=== PATIENT | female | born 1985 | race Caucasian/White ===

== ENCOUNTER → 2016-11-20 | Outpatient (CLI) | payer BC ==
[~2016-11-20] MED LIST: ALD250 PO; CALC500C3 PEG; DOXY-300 PO; GLC/500 PO; IBUP-1450 PO; METH250T21 PO; PRENTAB26 PO; RANI150T3 PO
--- NOTE | 2016-11-20 10:53 | DIAGNOSTIC IMAGING REPORT ---
CHEST 2 VIEWS ROUTINE HISTORY: COUGH COMPARISON: None. FINDINGS: No pleural effusions. No pneumothorax. The right lung is clear. Small linear density within the lingula. The heart is normal in size. No pleural effusions or pneumothorax. IMPRESSION: Small linear density within the lingula which favors subsegmental atelectasis or scarring. However, this could represent a small developing pneumonia but is considered less likely. Otherwise, the lungs are clear. Electronically signed by: Bo Lozano M.D. 11/20/2016 10:51 AM Dictated Date/Time: 11/20/2016 10:50 AM
== END | disposition home or self-care (01) ==
LOC: C.RAD1850 10:36
PROVIDERS: ATTEND Family Medicine
DX: R05 Cough (principal)

== ENCOUNTER → 2016-11-27 | Outpatient (CLI) | payer BC ==
--- NOTE | 2016-11-27 12:43 | DIAGNOSTIC IMAGING REPORT ---
CHEST 2 VIEWS ROUTINE CLINICAL HISTORY: Wheezing. Evaluate for pneumonia. COMPARISON STUDY: Chest radiograph November 20, 2016. FINDINGS: Lung volumes are normal. There is no consolidation to suggest pneumonia. Cardiac size is normal. Mediastinal contours are normal. There is no evidence of pulmonary edema. The appearance of the chest is unchanged. IMPRESSION: No acute cardiopulmonary findings. Electronically signed by: Valentin Ramírez M.D. 11/27/2016 12:42 PM Dictated Date/Time: 11/27/2016 12:41 PM
== END | disposition home or self-care (01) ==
LOC: C.RAD1850 12:26
PROVIDERS: ATTEND Family Medicine
DX: R06.2 Wheezing (principal)

== ENCOUNTER → 2016-12-27 | Outpatient (CLI) | payer BC ==
[~2016-12-27] MED LIST changes: -RANI150T3 PO
== END | disposition home or self-care (01) ==
LOC: C.LAB1850 15:51
PROVIDERS: ATTEND Obstetrics & Gynecology
DX: Z32.01 Encounter for pregnancy test, result positive (principal); O09.299 Supervision of pregnancy with other poor reproductive or obstetric history, unspecified trimester; Z3A.00 Weeks of gestation of pregnancy not specified

== ENCOUNTER → 2016-12-30 | Outpatient (CLI) | payer BC | END | disposition home or self-care (01) | LOC: C.LAB1850 09:56 | PROVIDERS: ATTEND Obstetrics & Gynecology | DX: O09.299 Supervision of pregnancy with other poor reproductive or obstetric history, unspecified trimester (principal) ==

== ENCOUNTER → 2017-01-03 | Outpatient (CLI) | payer BC | END | disposition home or self-care (01) | LOC: C.LAB1850 08:15 | PROVIDERS: ATTEND Obstetrics & Gynecology | DX: O09.299 Supervision of pregnancy with other poor reproductive or obstetric history, unspecified trimester (principal) ==

== ENCOUNTER → 2017-01-06 | Outpatient (CLI) | payer BC | END | disposition home or self-care (01) | LOC: C.LAB1850 08:01 | PROVIDERS: ATTEND Obstetrics & Gynecology | DX: O20.0 Threatened abortion (principal); Z3A.00 Weeks of gestation of pregnancy not specified ==

== ENCOUNTER → 2017-01-08 | Outpatient (CLI) | payer BC | END | disposition home or self-care (01) | LOC: C.LAB1850 08:21 | PROVIDERS: ATTEND Obstetrics & Gynecology | DX: O20.0 Threatened abortion (principal); Z3A.00 Weeks of gestation of pregnancy not specified ==

== ENCOUNTER → 2017-01-13 | Outpatient (CLI) | payer BC | END | disposition home or self-care (01) | LOC: C.LAB1850 08:07 | PROVIDERS: ATTEND Obstetrics & Gynecology | DX: O09.299 Supervision of pregnancy with other poor reproductive or obstetric history, unspecified trimester (principal); Z3A.00 Weeks of gestation of pregnancy not specified ==

== ENCOUNTER → 2017-01-16 | Outpatient (CLI) | payer BC | END | disposition home or self-care (01) | LOC: C.LAB1850 07:52 | PROVIDERS: ATTEND Obstetrics & Gynecology | DX: O09.299 Supervision of pregnancy with other poor reproductive or obstetric history, unspecified trimester (principal) ==

== ENCOUNTER → 2017-02-06 | Day surgery (SDC) | payer BC ==
[2017-02-04 12:24] LABS: BASO % 0.3 %; BASO ABS # 0.03 K/uL (0-0.2); COMPLETE YES; EOS % 0.6 %; HEMATOCRIT 37.3 % (37-47); IG% 0.3 %; LYMPH % 13.5 %; LYMPH ABS # 1.56 K/uL (1.2-3.4); MEAN CELL VOLUME 79.5 fL (80-100); MEAN CORPUSCULAR HEMOGLOBIN 25.6 pg (25-34); MEAN CORPUSCULAR HGB CONC 32.2 g/dl (32-36); MEAN PLATELET VOLUME 9.2 fL (7.4-10.4); MONO % 8.5 %; NEUT % 76.8 %; PLATELET COUNT 392 K/uL (130-400); RED BLOOD COUNT 4.69 M/uL (4.2-5.4); WHITE BLOOD COUNT 11.57 K/uL (4.8-10.8)
[2017-02-04 13:32] VITALS: BMI 41.0
[2017-02-04 13:51] LABS: POTASSIUM 3.8 mmol/L (3.5-5.1)
[~2017-02-06] VITALS: Ht 172.7 cm; Wt 121.8 kg
[~2017-02-06] MED LIST changes: -CALC500C3 PEG; +DEXAMETHASONE SOD INJ 4 MG/ML VIAL ONE; +DOXYCYCLINE HYCLATE 100 MG CAP PO SCH; +DOXYCYCLINE HYCLATE 100 MG CAP PO STA; +FENTANYL CITRATE INJ 50 MCG/1 ML 2 ML VIAL ONE; +IBUPROFEN 600 MG TAB PO PRN; +KETOROLAC TROMETHAMINE 30 MG/ML VIAL IV. PRN; +LACTATED RINGER'S 1000ML 1,000 ML IV PRN; +LACTATED RINGER'S 1000ML 1,000 ML IV SCH; +LIDOCAINE HCL 2% 2 ML VIAL (20MG/ML) ONE; +METHYLERGONOVINE MALEATE 0.2 MG TAB PO SCH; +METHYLERGONOVINE MALEATE 0.2 MG/ML AMP IV SCH; +METHYLERGONOVINE MALEATE 0.2 MG/ML AMP ONE; +MIDAZOLAM HCL 1 MG/ML 2ML VIAL ONE; +ONDANSETRON INJ 2 MG/ML 2 ML VIAL IV PRN; +ONDANSETRON INJ 2 MG/ML 2 ML VIAL ONE; +OXYCODONE/ACETAMINOPHEN 5-325 TAB PO PRN; +PROPOFOL IV EMULSION 10 MG/ML 20 ML VIAL IV ONE; +SODIUM CHLORIDE 0.9% 1000ML 1,000 ML IV SCH
[2017-02-06 10:17] VITALS: BP 163/93; PULSE 102; TEMP 37; O2SAT 97; Ht 172.7 cm; Wt 121.8 kg
[2017-02-06 11:08] LABS: CALCIUM 8.5 mg/dl (8.5-10.1); CREATININE 0.62 mg/dl (0.60-1.20); POTASSIUM 3.8 mmol/L (3.5-5.1)
--- NOTE | 2017-02-06 11:16 | History & Physical Bridge Note ---
H&P Re-Evaluation Bridge Note: I have examined the patient, reviewed the History & Physical and in the interval since the performance of the History & Physical I have noted the following changes of clinical significance: No changes noted
--- NOTE | 2017-02-06 11:59 | [facility] Post Operative Brief Note ---
Immediate Operative Summary Operative Date Feb 06, 2017. Pre-Operative Diagnosis Missed Post-Operative Diagnosis Missed Procedure(s) Performed Dilation and Evacuation of Uterine Contents Surgeon Dr. Dulce Tariq Statistical Methods Professor Surgeon(s) None Estimated Blood Loss 20ml Findings uterus sounds to 9cm preprocedure, small and mobile postprocedure. large pocs. Fluids (cc crystalloids) 400 Specimens A. Products of Conception Drains none Anesthesia general Complication(s) None Disposition Recovery Room / PACU
--- NOTE | 2017-02-06 12:05 | Discharge Instructions ---
Discharge Instructions Date of Service Feb 06, 2017. Admission Reason for Admission: Missed Discharge Discharge Diagnosis / Problem: after surgery Discharge Goals Goal(s): Routine recovery after surgery Activity Recommendations Activity Limitations: as noted below . Instructions / Follow-Up Instructions / Follow-Up ACTIVITY RECOMMENDATIONS: * Avoid tampons, douching, hot tubs, pools, and intercourse until bleeding has stopped. * May shower as usual. * No strenuous activity for 24-48 hours. After 24-48 hours, you may do anything you feel like doing (driving and sports are okay). SPECIAL CARE INSTRUCTIONS: Special Diet: * Mild nausea may occur in the immediate post-operative period. * Take clear liquids such as tea, cola or bouillon until all nausea has subsided; you may then resume your normal diet. Special Care: * Light bleeding and vaginal spotting can last from a few days to 3-4 weeks. Call your doctor if bleeding becomes heavier than the heaviest part of your period. * Check your temperature twice a day for one week. If it goes above 100.4 degrees Fahrenheit (38.0 Celsius), notify your doctor. * Call your doctor's office if need to change your postop appointment. * Take the antibiotic that was sent to your pharmacy as directed on bottle TAKE METHERGINE TABS BY MOUTH EVERY 6HRS until DONE, first dose around 6pm tonight. can use motrin and tylenol as needed for pain You requested weekly labs of your hormone, there is an order placed to have drawn next . FOLLOW-UP VISIT: FEBRUARY 19 at 815am. Current Hospital Diet Patient's current hospital diet: Discharge Diet Recommended Diet: Regular Diet Procedures Procedures Performed: Dilation and Evacuation of Uterine Contents Pending Studies Studies pending at discharge: yes List of pending studies: pathology Medical Emergencies . Who to Call and When: Medical Emergencies: If at any time you feel your situation is an emergency, please call 911 immediately. . Non-Emergent Contact Non-Emergency issues call your: Clay Maker . . "Provider Documentation" section prepared by Dulce Tariq. . VTE Core Measure Inpt VTE Proph given/why not?: Treatment not indicated
[2017-02-06] MEDS: FENTANYL CITRATE INJ 50 MCG/1 ML 2 ML VIAL IV PRN ×4 (12:08→12:23)
[2017-02-06 12:50] VITALS: BP 139/96; PULSE 91; TEMP 37; O2SAT 95
[2017-02-06 13:20] VITALS: BP 153/90; PULSE 91; O2SAT 97
--- NOTE | 2017-02-06 13:22 | Anesthesiology Progress Note ---
Anesthesia Post Op Note Date & Time Feb 06, 2017 at 13:22 Vital Signs Pain Intensity: 2 Vital Signs Past 12 Hours Date Time Temp Pulse Resp B/P (MAP) Pulse Ox O2 Delivery O2 Flow Rate FiO2 02/06/17 12:50 37 91 18 139/96 95 Room Air 02/06/17 12:39 151/103 02/06/17 12:37 175/107 02/06/17 12:34 92 14 95 02/06/17 12:34 36.9 90 16 151/103 (113) 96 Room Air 02/06/17 12:34 92 14 02/06/17 12:32 172/102 02/06/17 12:29 88 14 92 02/06/17 12:29 91 16 93 02/06/17 12:27 162/97 02/06/17 12:23 173/103 02/06/17 12:17 87 13 02/06/17 12:17 86 13 151/100 100 02/06/17 12:16 159/107 02/06/17 12:12 88 15 100 02/06/17 12:12 94 13 162/102 100 02/06/17 12:07 153/100 02/06/17 12:04 156/97 02/06/17 12:02 36.2 96 20 156/97 100 Nasal Cannula 10 02/06/17 10:17 37 102 20 163/93 (116) 97 Room Air Notes Mental Status: alert / awake / arousable, participated in evaluation Pt Amnestic to Procedure: Yes Nausea / Vomiting: adequately controlled Pain: adequately controlled Airway Patency, RR, SpO2: stable & adequate BP & HR: stable & adequate Hydration State: stable & adequate Anesthetic Complications: no major complications apparent Pt did well.
--- NOTE | 2017-02-06 13:32 | OPERATIVE REPORT ---
DATE OF OPERATION: 02/06/2017 PREOPERATIVE DIAGNOSES: Missed . POSTOPERATIVE DIAGNOSIS: Same. PROCEDURE: Dilatation, evacuation and curettage. SURGEON: Dr. Dulce Tariq. MARINE SURVEYOR: None. ANESTHESIA: General. IV FLUIDS: 400 mL ESTIMATED BLOOD LOSS: 20 mL. INDICATIONS: A 31-year-old with history of a 6-week missed who desires surgical management. The patient is aware of all of her treatment options and desires to proceed. FINDINGS: Uterus sounds to 9 cm preprocedure and a small and mobile post procedure. Large amount of products of conception. DESCRIPTION OF PROCEDURE: The patient was taken to the operating room and identified. After adequate general anesthesia was obtained, she was placed in dorsal lithotomy position and prepped and draped in the usual sterile fashion. A weighted speculum and anterior retractor were used to visualize the cervix which was grasped at its anterior lip with an Allis clamp. This was after the bladder was drained for clear yellow urine. The cervix was sequentially dilated using Hegar dilators to 23. An 8 mm suction curette was gently placed through the cervical os into the uterine cavity and the uterus was cleared of its contents in multiple passes. A curettage was performed to a gritty consistency and an additional pass with the suction curette took place to clear the uterus of any remaining tissue and blood. 0.2 mg of IM Methergine was administered by anesthesia per my order. The patient was returned to the supine position. She was awoken from anesthesia and transferred to the recovery room in stable condition. All sponge, lap and needle counts were correct x2. I attest to the content of the Intraoperative Record and any orders documented therein. Any exceptions are noted below. BRISEIDAD
[2017-02-06 13:59] VITALS: BP 154/97; PULSE 90; TEMP 36.7; O2SAT 98
[2017-02-06] MEDS: METHYLERGONOVINE MALEATE 0.2 MG TAB PO SCH (14:00)
== END | disposition home or self-care (01) ==
LOC: C.ACU 09:56
PROVIDERS: ATTEND Obstetrics & Gynecology
DX: O02.1 Missed abortion (principal); I10 Essential (primary) hypertension; Z88.1 Allergy status to other antibiotic agents; Z90.49 Acquired absence of other specified parts of digestive tract; Z90.89 Acquired absence of other organs; E66.01 Morbid (severe) obesity due to excess calories; Z68.41 Body mass index [BMI] 40.0-44.9, adult; Z88.2 Allergy status to sulfonamides; Z88.0 Allergy status to penicillin; Z83.3 Family history of diabetes mellitus

== ENCOUNTER 2017-02-08 22:13 | Emergency (ER) | payer BC ==
[~2017-02-08] VITALS: Ht 170.2 cm; Wt 126.5 kg
[~2017-02-08 22:13] MED LIST changes: -DEXAMETHASONE SOD INJ 4 MG/ML VIAL ONE; -DOXY-300 PO; -DOXYCYCLINE HYCLATE 100 MG CAP PO SCH; -DOXYCYCLINE HYCLATE 100 MG CAP PO STA; -FENTANYL CITRATE INJ 50 MCG/1 ML 2 ML VIAL ONE; -IBUP-1450 PO; -IBUPROFEN 600 MG TAB PO PRN; -KETOROLAC TROMETHAMINE 30 MG/ML VIAL IV. PRN; -LACTATED RINGER'S 1000ML 1,000 ML IV PRN; -LACTATED RINGER'S 1000ML 1,000 ML IV SCH; -LIDOCAINE HCL 2% 2 ML VIAL (20MG/ML) ONE; -METHYLERGONOVINE MALEATE 0.2 MG TAB PO SCH; -METHYLERGONOVINE MALEATE 0.2 MG/ML AMP IV SCH; -METHYLERGONOVINE MALEATE 0.2 MG/ML AMP ONE; -MIDAZOLAM HCL 1 MG/ML 2ML VIAL ONE; -ONDANSETRON INJ 2 MG/ML 2 ML VIAL IV PRN; -ONDANSETRON INJ 2 MG/ML 2 ML VIAL ONE; -OXYCODONE/ACETAMINOPHEN 5-325 TAB PO PRN; -PROPOFOL IV EMULSION 10 MG/ML 20 ML VIAL IV ONE; -SODIUM CHLORIDE 0.9% 1000ML 1,000 ML IV SCH
[2017-02-08 22:15] VITALS: TEMP 36.6; Ht 170.2 cm; Wt 126.5 kg
[2017-02-08] MEDS ORDERED: SODIUM CHLORIDE 0.9% 1000ML 1,000 ML IV STA (22:37)
[2017-02-08] MEDS ORDERED: MoRPHine SULFATE 10 MG/ML CARP/VIAL IV STA (22:44)
[2017-02-08 23:00] LABS: BASO % 0.2 %; BASO ABS # 0.03 K/uL (0-0.2); COMPLETE YES; EOS % 1.5 %; HEMATOCRIT 34.9 % (37-47); IG% 0.2 %; LYMPH % 12.4 %; LYMPH ABS # 1.62 K/uL (1.2-3.4); MEAN CELL VOLUME 81.2 fL (80-100); MEAN CORPUSCULAR HEMOGLOBIN 25.6 pg (25-34); MEAN CORPUSCULAR HGB CONC 31.5 g/dl (32-36); MEAN PLATELET VOLUME 8.8 fL (7.4-10.4); NEUT % 75.7 %; PLATELET COUNT 321 K/uL (130-400); WHITE BLOOD COUNT 13.08 K/uL (4.8-10.8)
[2017-02-08 23:17] LABS: BUN/CREATININE RATIO 14.4 (10-20); CALCIUM 8.3 mg/dl (8.5-10.1); CREATININE 0.79 mg/dl (0.60-1.20); POTASSIUM 3.9 mmol/L (3.5-5.1)
[2017-02-09 00:57] LABS: URINE APPEARANCE CLEAR (CLEAR); URINE BILIRUBIN NEG (NEG); URINE COLOR YELLOW; URINE EPITHELIAL CELL AUTO >30 /lpf (0-5); URINE NITRITE NEG (NEG); URINE SPECIFIC GRAVITY 1.015 (1.000-1.030); UROBILINOGEN NEG (NEG); ZZUR CULT IF INDIC CLEAN CATCH YES
[2017-02-09] MEDS ORDERED: KETOROLAC TROMETHAMINE 30 MG/ML VIAL IV STA (00:58)
[2017-02-09 01:01] LABS: MANUAL MICROSCOPIC REQUIRED? NO; REVIEW REQ? NO
[2017-02-09] MEDS ORDERED: IBUP-1450 PO (01:10)
[2017-02-09 01:36] VITALS: BP 134/68; PULSE 78; O2SAT 99
[2017-02-09] MEDS ORDERED: DOXYCYCLINE HYCLATE 100 MG CAP PO ONE (01:45)
[2017-02-09] MEDS ORDERED: DOXY-300 PO (01:50)
--- NOTE | 2017-02-09 02:15 | EMERGENCY ROOM VISIT NOTE ---
History Report prepared by Leonardoibshikha: Osman Neville Under the Supervision of: Dr. Edy Paul D.O. First contact with patient: 22:21 Chief Complaint: ABDOMINAL PAIN Stated Complaint: LOWER ABD PAIN,D&E FOR MISCARRIAGE ON 02-06 History of Present Illness The patient is a 31 year old female who presents to the Emergency Room with complaints of worsening lower abdominal pain starting last night. She reports the pain as a 10/10 in severity. The patient states that she had a D&E with Dr. Tariq three days ago due to a miscarriage. She reports that she was fine after the appointment, but had an allergic reaction the next day to the antibiotics she was taking. The patient admits that she has stopped taking the antibiotic due to her reaction. She states that she started to have lower abdominal pain radiating to her groin starting last night that has worsened since tonight. The patient states that her stomach has been distended. She admits to going to the bathroom 3 to 4 times today with normal stool. The patient also admits to scant vaginal bleeding. No other vaginal discharge. She does note that she has had something similar before in the past on 2 separate occasions and it ended up being a UTI. Her last bowel movement prior to today was early /late Friday. She notes that she has been constipated since the procedure. She reports that she is taking iron pills. The patient denies headache, change in vision, fevers, chest pain, shortness of breath, nausea, vomiting, diarrhea, pain with urination, and melena. Source of History: patient Onset: last night Position: abdomen (lower) Symptom Intensity: 10/10 Timing: worsening Associated Symptoms: No fevers, No headache, No chest pain, No SOB, No vomiting, No diarrhea Review of Systems See HPI for pertinent positives & negatives. A total of 10 systems reviewed and were otherwise negative. Past Medical & Surgical Medical Problems: (1) Pre-eclampsia, Social History Smoking Status: Never Smoker Alcohol Use: none Drug Use: none Marital Status: Housing Status: lives with friends Occupation Status: employed Current/Historical Medications Scheduled Doxycycline (Monohydrate) (Doxycycline), 100 MG PO BID Methyldopa (Aldomet), 500 MG PO AMPM Methyldopa (Methyldopa), 250 MG PO NOON Multivit/Min/Iron/Fol Ac/Pren ( Vitamin), 1 TAB PO HS Scheduled PRN Ibuprofen (Motrin), 200-600 MG PO DIRECTED PRN for Pain or Fever Allergies Coded Allergies: Nitrofurantoin (Verified Allergy, Intermediate, HIVES, 02/09/17) Erythromycin (Verified Allergy, Unknown, ?, 02/09/17) Penicillins (Verified Allergy, Unknown, PT. IS ABLE TO TAKE CEFTIN, ) Sulfa Drugs (Verified Allergy, Unknown, ?, 02/09/17) Sulfamethoxazole (Verified Allergy, Unknown, HIVES, 02/09/17) Trimethoprim (Verified Allergy, Unknown, HIVES/DIARRHEA, 02/09/17) Physical Exam Vital Signs Date Time Temp Pulse Resp B/P (MAP) Pulse Ox O2 Delivery O2 Flow Rate FiO2 02/09/17 01:36 78 20 134/68 99 Room Air 02/08/17 23:45 78 18 137/94 99 Room Air 02/08/17 22:15 36.6 110 16 125/86 97 Room Air Physical Exam GENERAL: Sitting up in bed, disheveled, alert, well appearing, well nourished, no distress, non-toxic EYE EXAM: normal conjunctiva, PERRL and EOM's grossly intact OROPHARYNX: no exudate, no erythema, lips, buccal mucosa, and tongue normal and mucous membranes are moist NECK: supple, no nuchal rigidity, no adenopathy, non-tender LUNGS: Clear to auscultation. Normal chest wall mechanics HEART: no murmurs, S1 normal and S2 normal ABDOMEN: abdomen soft, tenderness to suprapubic region, normo-active bowel sounds, no masses, no rebound or guarding. BACK: Back is symmetrical on inspection and there is no deformity, no midline tenderness, no CVA tenderness. SKIN: no rashes and no bruising UPPER EXTREMITIES: upper extremities are grossly normal. LOWER EXTREMITIES: No pitting edema. NEURO EXAM: Normal sensorium, cranial nerves II-XII grossly intact, normal speech, no gross weakness of arms, no gross weakness of legs. Gross sensation intact. Medical Decision & Procedures ER Provider Diagnostic Interpretation: Radiology results as stated below per my review and interpretation: Portable AP Upright Chest. No focal infiltrate. No pneumothorax 5 views Abdomen: Large amount of gas with large fecal load. No obstruction. Clips located in right upper quadrant. US PELVIS: Limited transabdominal study. Slightly heterogenous endometrium measuring approximately 1 cm. No definite vascularity noted. Ovaries not visualize. Possible trace pelvic free fluid. Debris in the Bladder. Radiologist: Shonna Arboleda M.D Study ready at 00:44 and initial results transmitted at 0047. Laboratory Results 02/08/17 22:50 Red Blood Count 4.30, Mean Corpuscular Volume 81.2, Mean Corpuscular Hemoglobin 25.6, Mean Corpuscular Hemoglobin Concent 31.5, Mean Platelet Volume 8.8, Neutrophils (%) (Auto) 75.7, Lymphocytes (%) (Auto) 12.4, Monocytes (%) (Auto) 10.0, Eosinophils (%) (Auto) 1.5, Basophils (%) (Auto) 0.2, Neutrophils # (Auto ) 9.90, Lymphocytes # (Auto) 1.62, Monocytes # (Auto) 1.31, Eosinophils # (Auto ) 0.19, Basophils # (Auto) 0.03 02/08/17 22:50 Test 02/08/17 22:50 02/09/17 00:40 White Blood Count 13.08 K/uL (4.8-10.8) Red Blood Count 4.30 M/uL (4.2-5.4) Hemoglobin 11.0 g/dL (12.0-16.0) Hematocrit 34.9 % (37-47) Mean Corpuscular Volume 81.2 fL (80-100) Mean Corpuscular Hemoglobin 25.6 pg (25-34) Mean Corpuscular Hemoglobin Concent 31.5 g/dl (32-36) Platelet Count 321 K/uL (130-400) Mean Platelet Volume 8.8 fL (7.4-10.4) Neutrophils (%) (Auto) 75.7 % Lymphocytes (%) (Auto) 12.4 % Monocytes (%) (Auto) 10.0 % Eosinophils (%) (Auto) 1.5 % Basophils (%) (Auto) 0.2 % Neutrophils # (Auto) 9.90 K/uL (1.4-6.5) Lymphocytes # (Auto) 1.62 K/uL (1.2-3.4) Monocytes # (Auto) 1.31 K/uL (0.11-0.59) Eosinophils # (Auto) 0.19 K/uL (0-0.5) Basophils # (Auto) 0.03 K/uL (0-0.2) RDW Standard Deviation 52.0 fL (36.4-46.3) RDW Coefficient of Variation 17.4 % (11.5-14.5) Immature Granulocyte % (Auto) 0.2 % Immature Granulocyte # (Auto) 0.03 K/uL (0.00-0.02) Anion Gap 10.0 mmol/L (3-11) Est Creatinine Clear Calc Drug Dose 141.3 ml/min Estimated GFR () 114.8 Estimated GFR (Non- 99.1 BUN/Creatinine Ratio 14.4 (10-20) Calcium Level 8.3 mg/dl (8.5-10.1) Total Bilirubin 0.6 mg/dl (0.2-1) Direct Bilirubin 0.1 mg/dl (0-0.2) Aspartate Amino Transf (AST/SGOT) 8 U/L (15-37) Alanine Aminotransferase (ALT/SGPT) 18 U/L (12-78) Alkaline Phosphatase 60 U/L (45-117) Total Protein 6.7 gm/dl (6.4-8.2) Albumin 3.3 gm/dl (3.4-5.0) Lipase 99 U/L (73-393) Human Chorionic Gonadotropin, Quant 1249 mIU/mL Urine Color YELLOW Urine Appearance CLEAR (CLEAR) Urine pH 5.0 (4.5-7.5) Urine Specific [place] 1.015 (1.000-1.030) Urine Protein NEG (NEG) Urine Glucose (UA) NEG (NEG) Urine Ketones NEG (NEG) Urine Occult Blood 3+ (NEG) Urine Nitrite NEG (NEG) Urine Bilirubin NEG (NEG) Urine Urobilinogen NEG (NEG) Urine Leukocyte Esterase LARGE (NEG) Urine WBC (Auto) >30 /hpf (0-5) Urine RBC (Auto) >30 /hpf (0-4) Urine Hyaline Casts (Auto) 1-5 /lpf (0-5) Urine Epithelial Cells (Auto) >30 /lpf (0-5) Urine Bacteria (Auto) NEG (NEG) Urine Test POS (NEG) Laboratory results per my review. Medications Administered Medications (Trade) Dose Ordered Sig/[place] Route Start Time Stop Time Status Last Admin Dose Admin Sodium Chloride 1,000 ml @ 999 mls/hr Q1H1M STAT IV 02/08/17 22:37 02/08/17 23:37 DC 02/08/17 22:55 999 MLS/HR Ketorolac Tromethamine (Toradol Inj) 30 mg NOW STAT IV 02/09/17 00:58 02/09/17 00:59 DC 02/09/17 01:12 30 MG Doxycycline Hyclate (Vibramycin Cap) 100 mg ONE ONCE PO 02/09/17 01:45 02/09/17 01:46 DC 02/09/17 01:45 100 MG ED Course ED COURSE: Vital signs were reviewed and showed hypertensive. The patients medical record was reviewed The above diagnostic studies were performed and reviewed. ED treatments and interventions as stated above. 2225: The patient was evaluated in room B09. A complete history and physical examination was performed. 2237: Sodium Chloride 1000 ml @ 999 mls/hr IV. 0058: Toradol 30 mg IV. 0134: I discussed the patient's case with Dr. Palomino, JOB RECRUITER, and he recommended Doxycycline and to cover her for endometritis. He does not recommend a pelvic exam. 0145: Vibramycin Cap 100 mg PO. 0150: Upon reevaluation, the patient is feeling better. I discussed the findings and the treatment plan with the patient. She verbalizes agreement and understanding. She was discharged home. Medical Decision Differential diagnoses includes but is not limited to gastritis, peptic ulcer disease, GERD, gallbladder disease, pancreatitis, small bowel obstruction, acute coronary syndrome, pericarditis, ischemic bowel, irritable bowel disease, irritable bowel syndrome, appendicitis, diverticulitis, malignancy, hernia, urinary tract infection, torsion, [/ectopic (if female)], perforation, trauma, infectious. Patient is a 31-year-old female who presents the ER for lower abdominal pain which started earlier today. She does note that she has not had a bowel movement since last Friday/early prior to her D&E. She admits to skin vaginal bleeding. No fevers. She does not that this pain feels similar to previous UTIs but not exactly same. Labs show a leukocytosis of 13,000. Hemoglobin is 11. BMP was unremarkable along with LFTs, bilirubin and lipase. HCG was 1200. UA was contaminated with multiple epithelial cells but did have greater than 30 whites and a large amount leukocytes. Obstruction series shows large stool burden with a large amount of gas. No perforation. Pelvic cultures and shows a thickening of the endometrium. Discussed findings with OB and they recommended treating with doxycycline for possible endometritis. They recommended no pelvic as ultrasound had already been performed. Patient was given a dose of doxycycline. She is discharged to follow-up as an outpatient. I do believe that the symptoms are likely related to either her constipation versus endometritis versus UTI. Doxycycline will cover the endometritis versus UTI since the urine was contaminated. She has gone the bathroom multiple times today following taking multiple stool softeners. I did recommend over-the- counter stool softeners tomorrow to see if she has resolution of her symptoms. I called a prescription for doxycycline to [facility] in [facility]. Discussed with Pt concerning signs and symptoms to watch out for. Pt was instructed to follow up with their PCP and discussed with the patient their option to return to the ED at anytime for persistent or worsening symptoms. The appropriate anticipatory guidance and out-patient management, including indications for return to the emergency department, were explained at length to the patient and understood. Consults Time Called: 013 Consulting Physician: Dr Palomino, JOB RECRUITER Returned Call: 0134 I discussed the patient's case with Dr. Palomino, JOB RECRUITER, and he recommended Doxycycline and to cover her for endometritis. He does not recommend a pelvic exam. Impression Primary Impression: Abdominal pain Additional Impressions: Endometritis Constipation Scribe Attestation The scribe's documentation has been prepared under my direction and personally reviewed by me in its entirety. I confirm that the note above accurately reflects all work, treatment, procedures, and medical decision making performed by me. Departure Information Dispostion Home / Self-Care Prescriptions Doxycycline (Monohydrate) (Doxycycline) 100 Mg Cap 100 MG PO BID, #20 Prov: Edy Paul, 02/09/17 Referrals Nisreen Gaitan D.O. (PCP) Forms Call Back Authorization, HOME CARE DOCUMENTATION FORM, IMPORTANT VISIT INFORMATION Patient Instructions Abdominal Pain - [facility], ED Endometritis Non Obstetric, My [facility] Additional Instructions Please follow up with your primary care doctor with in the next 24 hours. Any worsening of your symptoms, please return to the ED immediately. This includes fevers greater than 100.4, new vaginal discharge, worsening abdominal pain, or any other concerning signs or symptoms from your stand point. Please take antibiotics as prescribed. Problem Qualifiers Primary Impression: Abdominal pain Abdominal location: unspecified location Qualified Codes: R10.9 - Unspecified abdominal pain Additional Impressions: Constipation Constipation type: unspecified constipation type Qualified Codes: K59.00 - Constipation, unspecified
--- NOTE | 2017-02-09 06:43 | DIAGNOSTIC IMAGING REPORT ---
EXAMINATION: PELVIC ULTRASOUND CLINICAL HISTORY: Pelvic pain. History of D&C. COMPARISON STUDY: ultrasound dated 06-16 FINDINGS: The uterus measured 11.5 x 6.4 x 7.6 cm.. The endometrial stripe measured 1 cm.. The endometrium is subtly heterogeneous. There is no increased vascularity identified The ovaries were nonvisualized. There is minimal dependent debris within the bladder. Trace free fluid The patient was on the sagittal restrictions due to recent procedure. The examination was therefore performed a transabdominal fashion only. The study was limited from a technical standpoint due to the patient's large body habitus (BMI 43.7) IMPRESSION: 1. Technically limited study. Subtly heterogeneous endometrium measuring 1 cm. 2. Nonvisualization of the ovaries Electronically signed by: Elias Archibald M.D. 02/09/2017 6:41 AM Dictated Date/Time: 02/09/2017 6:38 AM
--- NOTE | 2017-02-09 06:52 | DIAGNOSTIC IMAGING REPORT ---
ABDOMEN 2VIEW W/PA CHEST RTN CLINICAL HISTORY: abd pain COMPARISON STUDY: Chest x-ray dated 11/27/2016 FINDINGS: The erect chest reveals no free intraperitoneal air. There is no lobar consolidation. There is no failure.] Supine views the abdomen reveal mild fecal retention. There are no transition zone to indicate a high-grade bowel obstruction. There are borderline dilated distal ileal bowel loops. There are surgical clips within the right upper quadrant consistent with a prior cholecystectomy. IMPRESSION: 1. Borderline dilated right abdominal small bowel loops, but no transition zones to indicate a bowel obstruction 2. No evidence of free air 3. Mild fecal retention Electronically signed by: Elias Archibald M.D. 02/09/2017 6:51 AM Dictated Date/Time: 02/09/2017 6:49 AM
== END 2017-02-09 02:13 | disposition home or self-care (01) ==
LOC: C.EDB 22:13
DX: R10.30 Lower abdominal pain, unspecified (principal); N71.9 Inflammatory disease of uterus, unspecified; K59.00 Constipation, unspecified; Z88.2 Allergy status to sulfonamides; Z88.0 Allergy status to penicillin; Z88.8 Allergy status to other drugs, medicaments and biological substances

== ENCOUNTER → 2017-02-20 | Outpatient (CLI) | payer BC ==
[~2017-02-20] MED LIST changes: +DOXY-300 PO; -GLC/500 PO; +IBUP-1450 PO
== END | disposition home or self-care (01) ==
LOC: C.PAPS 12:43
PROVIDERS: ATTEND Obstetrics & Gynecology
DX: Z01.411 Encounter for gynecological examination (general) (routine) with abnormal findings (principal); R87.610 Atypical squamous cells of undetermined significance on cytologic smear of cervix (ASC-US)

== ENCOUNTER 2019-08-20 11:11 | Observation (INO) ==
--- NOTE | 2019-07-27 15:14 | PAT Medication Instructions ---
Medication Instructions Date of Service July 27, 2019 Home Medications lisinopril 30 mg tablet 15 mg PO QPM citalopram [Celexa] 20 mg PO QPM ibuprofen 600 mg PO Q6H PRN ASK your surgeon for instructions ibuprofen 600 mg PO Q6H PRN Take evening before surgery lisinopril 30 mg tablet 15 mg PO QPM citalopram [Celexa] 20 mg PO QPM Other Notes If you have any questions please call us at [phone] or [phone] or [phone] or [phone]
--- NOTE | 2019-07-28 13:01 | Anesthesiology Consultation ---
Date of Service July 28, 2019 Assessment & Plan (1) Encounter for pre-operative examination: - Check test AM DOS Chart Review Chart Review: Acceptable Risk for Surgery (pending surgeon ordered UA (taking to outpatient lab)) and Patient seen in Pre Admission Testing Teaching & Discussion Pre-Anesthesia Teaching/Discussion Notes: Instructed NPO after midnight before s urgery,except medications with 15 cc of water. Medication instructions provided according to the PAT guidelines. History Surgery Operation Date: 08/20/19 12:10 Proposed Procedures p Robotic Total Laparoscopic Hysterectomy - Aicha Felder, Height/Weight Height: 5 ft 8 in Weight: 132.9 kg Allergies Allergy/AdvReac Type Severity Reaction Status Date / Time nitrofurantoin Allergy Intermediate hives Verified 07/28/19 12:02 erythromycin base Allergy Unknown Unknown Verified 07/28/19 12:02 reaction Penicillins Allergy Unknown ?hives, Verified 07/28/19 13:06 diarrhea (see comments) Sulfa (Sulfonamide Allergy Unknown hives, Verified 07/28/19 12:02 Antibiotics) diarrhea sulfamethoxazole Allergy Unknown hives, Verified 07/28/19 12:02 diarrhea trimethoprim Allergy Unknown hives, Verified 07/28/19 12:02 diarrhea Medications Home Medications Medication Instructions Recorded Confirmed Last Taken lisinopril 30 mg tablet 15 mg PO QPM tab 06/01/19 07/21/19 Unknown citalopram [Celexa] 20 mg PO QPM 07/21/19 07/28/19 Unknown ibuprofen 600 mg PO Q6H PRN 07/21/19 07/28/19 Unknown Past Medical History Medical History Anxiety Hx of ovarian cyst Hypertension Morbid obesity Scoliosis "mild"/no treatment "needed" Exercise / Class Metabolic Activity III < 4 Walking/Shop/Light housework Past Family History Family History Father Hypertension Grandmother (Paternal) Family history of diabetes mellitus Family/Other Family history of diabetes mellitus Mother Family history of diabetes mellitus Past Surgical History Surgical History H/O oral surgery History of colonoscopy History of esophagogastroduodenoscopy (EGD) History of gynecologic surgery surgical treatment for miscarriage S/P cholecystectomy S/P dilation and curettage S/P tonsillectomy Past Anesthesia History No Hx of Anesthesia Complications and No Family Hx of Anesthesia Complications History of PONV No Hx of PONV and Hx of Motion Sickness Social History Smoking Status: Never smoker Do You Dip or Chew Tobacco: No Hx Alcohol Use: Yes Alcohol type: wine and hard liquor alcohol intake frequency: holidays/special occasions only Hx Substance Use: No Review of Systems Patient denies chest pain, shortness of breath, cough, wheezing, palpitations. Physical Exam Vital Signs VITALS BP 104/72 P 94 TEMP 98.5 SP02 94%RA RESP 18 PHYSICAL Full neck and c-spine range of motion. Full TMJ range of motion. TMD 4 finger breaths Mallampati Score 3 Dentition: intact Lungs: clear throughout to auscultation Cardiac: regular rate and rhythm, no murmurs noted Spine: normal Extremities: no edema Testing Laboratory Results 07/28/19 13:18 07/28/19 13:18 Blood Type A Positive 07/28/19 13:18 Antibody Screen NEGATIVE 07/28/19 13:18 *hgb 10.4 in setting of menorrhagia (reason for upcoming surgery)* Electrocardiogram Date: 07/28/19 Findings: + NSR @ (73)
[2019-07-28 14:23] LABS: Basophils # (auto) 0.03 K/uL (0-0.2); Basophils % (auto) 0.3 %; Eosinophils # (auto) 0.07 K/uL (0-0.5); Eosinophils % (auto) 0.8 %; Hematocrit (blood only) 34.3 % (37-47); Hemoglobin 10.4 g/dL (12.0-16.0); Immature Granulocytes # (auto) 0.02 K/uL (0.00-0.02); Immature Granulocytes % (auto) 0.2 %; Lymphocytes # (auto) 1.88 K/uL (1.2-3.4); Mean Corpuscular Hemoglobin 23.2 pg (25-34); Mean Corpuscular Hgb Conc 30.3 g/dL (32-36); Mean Corpuscular Volume 76.6 fL (80-100); Mean Platelet Volume 8.9 fL (7.4-10.4); Monocytes # (auto) 0.75 K/uL (0.11-0.59); Monocytes % (auto) 8.4 %; Neutrophils % (auto) 69.3 %; Platelet Count 464 K/uL (130-400); RDW Coefficient of Variation 16.3 % (11.5-14.5); RDW Standard Deviation 45.4 fL (36.4-46.3); Red Blood Count 4.48 M/uL (4.2-5.4); White Blood Count 8.95 K/uL (4.8-10.8)
[2019-07-28 14:44] LABS: BUN Creatinine Ratio 17.5 (10-20); Calcium 9.7 mg/dl (8.5-10.1); Creatinine Clr Calc Pharmacy 156.9 ml/min; Est GFR (African American) 124.5; Est GFR (Non-African American) 107.5; Potassium 3.7 mmol/L (3.5-5.1)
[~2019-08-20 11:11] MED LIST changes: +ACETAMINOPHEN 1000 MG/100 ML IV IV ONE; -ALD250 PO; +CEFAZOLIN 3000MG 65 ML IV SCH; -DOXY-300 PO; -IBUP-1450 PO; +LR 15ML/HR IV SCH; -METH250T21 PO; -PRENTAB26 PO
[2019-08-20] MEDS ORDERED: ONDANSETRON INJ 2 MG/ML 2 ML VIAL ONE (11:32)
[2019-08-20] MEDS ORDERED: ROCURONIUM BROMIDE 10 MG/ML 5 ML VIAL ONE ×3 (11:32→14:40)
[2019-08-20] MEDS ORDERED: DEXAMETHASONE SOD INJ 4 MG/ML VIAL ONE (11:32)
[2019-08-20] MEDS ORDERED: fentaNYL citrate 100 MCG/2 ML VIAL ONE ×3 (11:32→16:18)
[2019-08-20] MEDS ORDERED: MIDAZOLAM HCL 1 MG/ML 2ML VIAL ONE (11:32)
[2019-08-20] MEDS ORDERED: LIDOCAINE HCL 2% 2 ML VIAL/AMP(20MG/ML) INFIL ONE (11:33)
[2019-08-20] MEDS ORDERED: PROPOFOL IV EMULSION 10 MG/ML 20 ML VIAL IV ONE (11:33)
--- NOTE | 2019-08-20 11:40 | History & Physical Bridge Note ---
Date of Service August 20, 2019 History & Physical Bridge Note I have examined the patient, reviewed the History & Physical and in the interval since the performance of the History & Physical I have noted the following changes of clinical significance: no changes noted
[2019-08-20] MEDS ORDERED: SCOPOLAMINE 1.5 MG TDSY ONE (12:52)
[2019-08-20] MEDS ORDERED: SCOPOLAMINE 1.5 MG TDSY TD SCH (13:00)
[2019-08-20] MEDS ORDERED: BUPIVACAINE 0.5 % 5 MG/1 ML MPF 30ML VIAL ONE (13:41)
[2019-08-20] MEDS ORDERED: TISSEEL FIBRIN SEALANT 10ML TOP ONE (14:45)
[2019-08-20] MEDS ORDERED: CHECK SCOPOLAMINE PATCH PLACEMENT SCH (16:00)
[2019-08-20] MEDS ORDERED: IBUPROFEN 600 MG TAB PO PRN (16:45)
[2019-08-20] MEDS ORDERED: ONDANSETRON INJ 2 MG/ML 2 ML VIAL IV PRN ×2 (16:45→17:53)
[2019-08-20] MEDS ORDERED: OXYCODONE/ACETAMINOPHEN 5mg/325mg TAB PO PRN (16:45)
[2019-08-20] MEDS ORDERED: KETOROLAC 30 MG/ML VIAL IV PRN (16:45)
[2019-08-20] MEDS ORDERED: PROMETHAZINE HCL 12.5 MG in SODIUM CHLORIDE 0.9% 50 ML IV PRN (16:45)
--- NOTE | 2019-08-20 16:45 | Post Operative Brief Note ---
PG Immediate Post Op with CF Date of Surgery August 20, 2019 Pre & Post Diagnosis Operation Date: 08/20/19 12:50 Pre-Op Diagnosis: Menorrhagia Post-Op Diagnosis: Menorrhagia I identified the patient and participated in the time-out.: Yes Procedure Operation Date: 08/20/19 12:50 Actual Procedures p Robotic Total Laparoscopic Hysterectomy, Bilateral Salpingectomy, Cystoscopy - Aicha Felder DO Surgeon Aicha Felder, Body Component Engineer none Estimated Blood Loss 10 Findings Consistent with Post-Op Diagnosis Fluids 1600ml Specimens Specimen Description: A. uterus, bilateral fallopian tubes, cervix Drains Pacheco Catheter Anesthesia Type General Disposition Accompanied Patient To Recovery: No Disposition: Recovery Room
--- NOTE | 2019-08-20 17:47 | Anesthesiology Progress Note ---
Date of Service August 20, 2019 Anesthesia Post Procedure Vital Signs Vital Signs: Temp Pulse Pulse Resp BP Pulse Ox 08/20/19 17:37 37.4 C 81 14 121/71 96 08/20/19 17:24 75 19 110/73 95 08/20/19 17:14 76 16 114/69 98 08/20/19 17:05 87 16 105/62 99 08/20/19 16:57 37.2 C 86 16 114/69 100 08/20/19 11:44 37.1 C 88 16 130/88 97 Transfer of Care Handoff Completed per policy Notes Mental Status: alert / awake / arousable and participated in evaluation Patient Amnestic to Procedure: Yes Nausea / Vomiting: adequately controlled Pain: adequately controlled Airway Patency, RR, SpO2: stable & adequate BP & HR: stable & adequate Hydration State: stable & adequate Anesthetic Complications: no major complications apparent
--- NOTE | 2019-08-20 18:24 | Operative Report ---
PG Post Operative Report Pre & Post Diagnosis Operation Date: 08/20/19 12:50 Pre-Op Diagnosis: Menorrhagia Post-Op Diagnosis: Menorrhagia I identified the patient and participated in the time-out.: Yes Procedure Operation Date: 08/20/19 12:50 Actual Procedures p Robotic Total Laparoscopic Hysterectomy, Bilateral Salpingectomy, Cystoscopy - Aicha Felder DO Surgeon Aicha Felder, DO Department Mgr none Estimated Blood Loss 10 Findings Consistent with Post-Op Diagnosis Specimens Uterus, bilateral fallopian tubes Drains Pacheco catheter, draining clear fluid, inserted at the beginning of case Anesthesia Type General Complications none Disposition Accompanied Patient To Recovery: No Disposition: Recovery Room Indications Patient is a 32-year-old -0-2-1 desiring hysterectomy for heavy menses. Very heavy bleeding during the week of her menstrual cycle, using overnight pads and often having accidents. This is been going on for many years, and she desires a permanent solution. She has completed childbearing and is also looking for permanent permanent sterilization. She has tried oral contraceptive pills, these caused migraines and hot flashes and periods did not improve. She is not interested in Mirena or other contraceptives this is still in part to possibility of future . Does not want to undergo ablation or tube lig ation, because she is very concerned that an ablation may cover a future endometrial cancer, also worried that it may not hold her over until menopause. Description of Procedure The patient was seen in the preoperative holding area, where risks benefits alternatives to surgery reviewed. She elected to proceed with the case. She had previously signed informed consent under no duress in the office. All questions were answered. She was taken to the operating room, 3 g of Ancef were infused preoperatively. General anesthesia was administered. Timeout was confirmed. She is repaired and draped in the usual sterile fashion with feet in yellowfin stirrups in the dorsolithotomy position. A Pacheco catheter was placed in the bladder. A weighted speculum was placed in the vagina, the cervix was visualized and grasped with a single-tooth tenaculum. Bilateral stay sutures were placed at 3 and 9:00 of the cervix, and the V care uterine manipulator was placed. Gloves were changed, attention was then turned to the abdomen. A supraumbilical incision was made with a scalpel, and using the [employer] scope, the supraumbilical trocar was gently placed under direct visualization. Patient was placed in steep Trendelenburg position, the abdominal cavity was visualized. Bilateral trochars were placed under direct visualization. The robot was docked. Bilateral salpingectomy was performed, with hot scissors dissecting the fallopian tubes from the medial mesosalpinx. These were removed from the body, and sent to pathology. Bilateral ureters were visualized peristalsing in the pelvic sidewalls. The left utero-ovarian ligament was coagulated and transected, the left round ligament was coagulated and transected, and the anterior leaf of the broad ligament was opened and dissected off the anterior aspect of the uterus. In a similar fashion, the right utero-ovarian ligament, right round ligament, and right side of the anterior leaf of the broad ligament were taken down. Bilateral uterine vessels were coagulated and then transected. The bladder was further dissected off the anterior aspect of the cervix. Using hot scissors, the uterus was transected from the vagina along the V care manipulator. Uterus was then delivered through the vagina. Excellent hemostasis was observed at the vaginal cuff, and this was reapproximated using V lock suture in a running stitch. Attention was then turned to the bladder. The previous Pacheco catheter was removed, and cystoscopy was performed. The bladder was visualized and no trauma or sutures were noted in the bladder. Bilateral urine jets were visualized through the ureters. The cystoscope was removed, and a new Pacheco catheter was placed for the postoperative recovery time. Attention was then turned to the pelvis lie of the da Chase robot, and all cut surfaces and raw edges were treated with Tisseel coagulant. Negative pressure test was done, excellent hemostasis was observed. The robot was undocked, and all trochars were removed from the abdomen. A [id number] stitch of 0 Vicryl was used at the supraumbilical and social research assistant port trocar sites. Skin was closed using 4-0 Vicryl in a running subcuticular stitch at all sites. 0.5% Marcaine was injected to each incision site for postoperative pain control. Dermabond was applied. The patient tolerated the procedure well, was taken to recovery area in stable and good condition. I attest to the content of the Intraoperative Record and any orders documented therein. Any exceptions are noted below.
[2019-08-20] MEDS: DOCUSATE SODIUM 100 MG CAP PO SCH (20:33)
[2019-08-20] MEDS ORDERED: ZOLPIDEM TARTRATE 5 MG TAB PO PRN (20:41)
--- NOTE | 2019-08-20 20:55 | Gynecologic Progress Note ---
Date of Service August 20, 2019 Subjective POD#0 doing well. Tolerating PO. No nausea/vomiting. Ambulating in halls. Pain controlled. No vaginal bleeding. Incisions CDI, abdomen soft/benign. Pacheco was draining adequate clear urine, just removed and patient has not yet felt urge to urinate. Asking for Rx for cipro because the weekend is coming up and she is very concerned she may get a UTI and be unable to be treated without going to ER. She gets frequent UTIs. Rx cipro sent to pharmacy with strict instructions to only take if she develops severe dysuria. Rx percocet transmitted to pharmacy on file. Anticipate DC home in AM. Results & Data Vital Signs (Past 12 Hours) Vital Signs Temp Pulse Pulse Pulse Resp BP Pulse Ox 08/20/19 20:05 36.8 C 102 H 16 117/69 98 08/20/19 19:05 36.4 C L 94 H 16 130/66 97 08/20/19 18:35 36.8 C 88 20 119/77 95 08/20/19 18:05 37.2 C 84 16 112/58 L 97 08/20/19 17:37 37.4 C 81 14 121/71 96 08/20/19 17:24 75 19 110/73 95 08/20/19 17:14 76 16 114/69 98 08/20/19 17:05 87 16 105/62 99 08/20/19 16:57 37.2 C 86 16 114/69 100 08/20/19 11:44 37.1 C 88 16 130/88 97
[2019-08-20] MEDS: OXYCODONE/ACETAMINOPHEN 5mg/325mg TAB PO PRN (21:12)
[2019-08-21] MEDS: OXYCODONE/ACETAMINOPHEN 5mg/325mg TAB PO PRN ×2 (01:21→08:43)
[2019-08-21 07:17] LABS: Hematocrit (blood only) 31.1 % (37-47); Hemoglobin 9.5 g/dL (12.0-16.0); Immature Granulocytes # (auto) 0.01 K/uL (0.00-0.02); Immature Granulocytes % (auto) 0.1 %; Lymphocytes # (auto) 1.18 K/uL (1.2-3.4); Lymphocytes % (auto) 9.8 %; Mean Corpuscular Hemoglobin 23.5 pg (25-34); Mean Corpuscular Hgb Conc 30.5 g/dL (32-36); Mean Platelet Volume 8.8 fL (7.4-10.4); Monocytes # (auto) 0.85 K/uL (0.11-0.59); Neutrophils # (auto) 10.03 K/uL (1.4-6.5); Neutrophils % (auto) 83.1 %; Platelet Count 425 K/uL (130-400); RDW Coefficient of Variation 16.4 % (11.5-14.5); RDW Standard Deviation 46.2 fL (36.4-46.3); Red Blood Count 4.04 M/uL (4.2-5.4); White Blood Count 12.07 K/uL (4.8-10.8)
[2019-08-21 07:50] LABS: BUN Creatinine Ratio 14.2 (10-20); Calcium 8.6 mg/dl (8.5-10.1); Creatinine Clr Calc Pharmacy 151.1 ml/min; Est GFR (African American) 118.6; Est GFR (Non-African American) 102.3
--- NOTE | 2019-08-21 08:19 | Gynecologic Progress Note ---
Date of Service August 21, 2019 Assessment & Plan (1) Heavy menses: Doing well, discharge to home. Instructions reviewed. Followup in office 2w and 6w postop. Subjective POD#1 doing well. Ambulating, eating/drinking well. No bleeding. Not passing gas or stools yet. Urinating ok. Pain controlled. Physical Exam Physical Exam: Gen: AAOx3 NAD CV: RRR L: CTAB Abd: soft, NTTP. Incisions CDI. +bowel sounds Ext: no edema, no calf tenderness Results & Data Vital Signs (Past 12 Hours) Vital Signs Temp Pulse Resp BP Pulse Ox 08/21/19 07:30 36.7 C 67 18 122/76 98 08/21/19 04:20 36.8 C 79 18 110/53 L 08/20/19 23:30 37.1 C 98 H 18 101/55 L 08/20/19 21:05 37.2 C 87 16 121/71
--- NOTE | 2019-08-21 08:21 | Discharge Summary ---
Date of Service August 21, 2019 Discharge Data Procedures Performed Operation Date: 08/20/19 12:50 Actual Procedures p Robotic Total Laparoscopic Hysterectomy, Bilateral Salpingectomy, Cystoscopy - Aicha Felder DO Hospital Course (1) Heavy menses: Patient was admitted for observation following robotic-assisted TLH/BS. Routine recovery, discharged to home in AM POD#1. Followup in office 2w, 6w. Please see op report and patient discharge instructions for further details.
[2019-08-21] MEDS: DOCUSATE SODIUM 100 MG CAP PO SCH (08:34)
== END 2019-08-21 09:05 | disposition home or self-care (01) ==
LOC: 4N 11:11 → ASU 11:11